=== PATIENT | female | born 1995 | race Caucasian/White ===

== ENCOUNTER → 2017-07-04 | Outpatient (CLI) | payer BC ==
[~2017-07-04] MED LIST: ILOTYCIN OPTHALMIC; MOTRIN600 M1 PO; MOTRIN600 M2 PO; NO MEDICATIONS; NORCO1 TAB 10/3 PO; VICODIN 5/500 T1 TAB PO; ZITHROMAX PO; ZITHROMAX600 MG PO
--- NOTE | ~2017-07-04 | EE ---
Unit #: [id number] #: [id number] Patient: SILVIA QUINONEZ [id number] [address] [address] [id number] O MR#: [id number] NAME: SILVIA QUINONEZ : 1995 SEX: F STUDY DATE/TIME: 07/04/2017 UNIT: CEEG ROOM: STUDY DESCRIPTION: EEG Attending Physician: Gloria Pulliam M.D. Referring Physician: Gloria Pulliam M.D. Primary Care Physician: Deana Pereira M.D. NEURODIAGNOSTICS REPORT EXAM EEG. REASON FOR STUDY Seizures. TECH Carla. TECHNICAL INFORMATION This is a routine EEG performed using the standard international 10-20 system of electrode placement. Photic stimulation was performed. Hyperventilation was also performed. REPORT Throughout the entire study, the best background rhythm seen is approximately 11 Hz. This rhythm is seen in both posterior head regions symmetrically and does attenuate to eye opening and closure. Hyperventilation was performed, which did not elicit any abnormal buildup. Photic stimulation was also performed, which did not elicit any epileptiform abnormalities; however, a good photic driving response was seen. No sleep was recorded during the EEG. Throughout the entire study there were no electrographic seizures recorded, nor were there any independent epileptiform abnormalities seen. INTERPRETATION This is a normal awake EEG. A normal EEG does not rule out the possibility of a seizure disorder. Clinical correlation is advised. Dictated by... Robert Alberto II., M.D. GWS/rey TD: 07/08/2017 15:10 JOB #: [id number] Unit #: [id number] #: [id number] Patient: SILVIA QUINONEZ NEURODIAGNOSTICS REPORT Page 1 of 1 X NEURODIAGNOSTICS REPORT
--- NOTE | ~2017-07-04 | MR17 ---
[facility] A Service of [facility] & [facility] RADIOLOGY TEXT RESULTS PATIENT: SILVIA QUINONEZ LOCATION: CEEG : [birth year] UNIT #: [id number] AGE: [address]: GLORIA FITCH SEX: F ORDER DR: [id number] [facility] [address] [place], [place] [address] [id number] O MR#: [id number] Acc #: [id number] NAME: SILVIA QUINONEZ : 1995 SEX: F STUDY DATE/TIME: 07/04/2017 9:56 UNIT: CEEG ROOM: STUDY DESCRIPTION: MR Brain WWo Contrast Attending Physician: Gloria iFtch M.D. Referring Physician: Gloria Fitch M.D. Ordering Physician: Physician Non-Staff Primary Care Physician: Deana Pereira M.D. MRI CENTER REPORT This report is preliminary unless electronic signature is present. EXAM MRI of the brain with and without contrast dated 07/04/[address] dated 06/27/2012. No prior MRI or CT brain studies HISTORY Seizures for 6 years. Last month, the patient hit right side of the head at doctor's office. In August 2016, the patient fell off a horse and hit front of the head. She did not have helmet on. TECHNIQUE Multisequence multiplanar imaging of the brain was obtained with and without contrast as per the protocol. 11 mL of MultiHance was administered intravenously. FINDINGS No acute stroke, enhancing intracranial mass, mass effect, midline shift or hydrocephalus. There appears to be mild diffuse parenchymal volume loss particularly in biparietal lobes extending towards bifrontal lobes along the convexity. Thin coronal T2 sequence through the hippocampal formations are symmetrical and within normal limits. No evidence of cortical dysgenesis or congenital malformations. Postcontrast sequences do not demonstrate enhancing lesions. IMPRESSION 1. There is age-appropriate mild parenchymal volume loss in biparietal lobes extending towards bifrontal lobes. It is noted particularly along the convexity. 2. No acute stroke, enhancing mass, hydrocephalus, hemorrhage or midline shift. 3. No congenital malformations including cortical dysgenesis, hippocampal abnormalities or congenital malformations. [facility] A Service of [facility] & [facility] RADIOLOGY TEXT RESULTS PATIENT: SILVIA QUINONEZ LOCATION: [facility] [place] : [birth year] UNIT #: [id number] AGE: [address]: GLORIA FITCH SEX: F ORDER DR: Dictated by... Renate Roca M.D. THIS IS AN ELECTRONICALLY VERIFIED REPORT Renate Roca M.D. at 07/05/2017 2:51 PM CPR/to TD: 07/04/2017 17:46 JOB #: [id number] MRI CENTER REPORT Page 1 of 1 COPY
== END | disposition home or self-care (01) ==
LOC: CEEG 06:39
DX: R56.9 Unspecified convulsions (principal)
CPT/HCPCS: 70553; 95816; A9577